=== PATIENT | male | born 1975 | race Caucasian/White ===

== ENCOUNTER → 2016-10-15 | Day surgery (SDC) | payer BC ==
[~2016-10-15] MED LIST: NO MEDICATIONS; PANTOPRAZOLE SO40 MG
--- NOTE | ~2016-10-15 | CO ---
Unit #: [id number] #: [id number] Patient: WILLOW BANGURA [id number] [address] [place], [place] [address] [id number] O MR#: [id number] NAME: WILLOW BANGURA. ROOM: Age: 41 Sex: M Admission Date: 10/15/2016 : 1975 Attending Physician: Pilo Flynn M.D. Requesting Physician: Pilo Flynn M.D. Consultation Date: 10/15/2016 CONSULTATION REPORT REASON FOR CONSULTATION Patient has meat impaction in the esophagus and presented to the emergency room. Patient was seen in the emergency room at the request of the emergency room doctor. Apparently, patient has had occasional episodes of dysphagia to solids but denies any persistent dysphagia. Earlier today he was eating a meat burrito, and this got stuck in his esophagus. Patient is extremely uncomfortable and is complaining of lower sternal pain. He does have a history of vomiting and regurgitation after he tried to eat more. PAST MEDICAL HISTORY No significant past medical history. PAST SURGICAL HISTORY The only previous surgeries include back surgeries. HOME MEDICATIONS He is not on any home medications and denies taking [id number] NSAIDS. ALLERGIES No known drug allergies. SOCIAL HISTORY He does not smoke or drink alcohol. He drinks as a adult probation officer. He is and lives at home with his . There is no family history of colon or pancreatic cancer or liver disease. REVIEW OF SYSTEMS A detailed review of organ systems does not reveal any recent weight loss. No history of fever, chills, or rigors, no history of headaches, seizures, or syncope, no history of cough, expectoration, or hemoptysis, no history of dysuria, hematuria, or pyuria, and no history of focal seizures or extremity weakness. The rest of the review of organ systems is unremarkable. PHYSICAL EXAMINATION GENERAL: He is awake, alert, oriented, and appears quite athletic and muscular. VITAL SIGNS: Stable with temperature of 97.9, pulse 80 per minute and regular, respiratory rate is 16, blood pressure is 116/71, and oxygen saturation is 99% on room air. HEENT: No pallor, icterus, lymphadenopathy, or peripheral edema. CARDIOVASCULAR: Normal heart sounds. No murmurs. Unit #: [id number] #: [id number] Patient: WILLOW BANGURA CHEST: Auscultation over the lungs reveals normal breath sounds and good air entry. ABDOMEN: Soft and nontender. Liver and spleen are not palpable, and bowel sounds are normal. DIAGNOSTIC STUDIES LABORATORY: No labs have been done. CLINICAL IMPRESSION Patient with bolus meat impaction in the distal esophagus. An upper endoscopy and a disimpaction of the foreign body is indicated and this will be scheduled shortly. The pros and cons of the procedure and the potential risks and complications including a higher than normal possibility of esophageal perforation were discussed with the patient and his . They both seemed reassured. Thank you for asking me to see this pleasant gentleman. I appreciate the consult. Dictated by... Cristal Rai/kenyon TD: 10/16/2016 18:48 JOB #: [id number] CONSULTATION REPORT Page 1 of 1 X Pilo Flynn MD X CONSULTATION REPORT
--- NOTE | ~2016-10-15 | OR ---
Unit #: [id number] #: [id number] Patient: WILLOW BANGURA [id number] [address] [address] [id number] O MR#: [id number] NAME: WILLOW BANGURA ROOM: Date of Procedure: 10/15/2016 Admission Date: 10/15/2016 Surgeon: Pilo Flynn M.D. : 1975 Attending Physician: Pilo Flynn M.D. Referring Physician: Pilo Flynn M.D. OPERATIVE REPORT PREOPERATIVE DIAGNOSIS The patient had presented with meat impaction of the esophagus. PROCEDURES PERFORMED 1. Upper gastrointestinal endoscopy and biopsy. 2. Upper gastrointestinal endoscopy and meat foreign body removal. POSTOPERATIVE DIAGNOSES 1. 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 The meat bolus was impacted above that area. The meat bolus was removed and disimpacted. The patient had underlying stricture with lot of edema and injury to these area from intervention. 2. Prepyloric antral gastritis. 3. Rest of the examination up to third part of duodenum was normal. A biopsy was obtained from the antrum for CLOtest. RECOMMENDATIONS The patient is being started on pantoprazole 40 mg p.o. b.i.d. He will be followed up in the office in 8 to 10 weeks' time and a repeat endoscopy and elective dilation will be attempted at that time. SEDATION USED MAC. DESCRIPTION OF PROCEDURE Following detailed explanation of the potential risks and complications of an upper endoscopy, namely perforation, bleeding, and complication related to sedation, the patient was brought to GI lab and laid in the left lateral decubitus position. Lubricated tip of the Olympus video upper endoscope was passed through the bite block into the proximal esophagus under direct vision. The entire esophageal mucosa was examined. The patient was noted to have a meat bolus impacted in the distal esophagus. This was disimpacted using combination of gentle tug of the scope and triceps and tripods. After the meat bolus was disimpacted, the area was carefully examined. Underlying stricture with lot of erythema and erosions were noted. The scope was then advanced into the gastric cavity and the latter was insufflated. Mucosa of the fundus, body, and antrum was examined. Prepyloric antral erythema erosions were noted indicating antral gastritis. Pylorus was intubated with visualization of the normal duodenal bulb and second and third part of the duodenum. Upon withdrawal and retroflexion, incisura, cardia, and greater curve was examined and biopsy was obtained from the antrum for CLOtest. The scope was then Unit #: [id number] #: [id number] Patient: WILLOW BANGURA withdrawn in the distal esophagus. Entire esophageal mucosa was examined all the way up to pharynx. No additional findings were noted. The patient tolerated the procedure without any postprocedure complications. Dictated by... Cristal Rai/janet TD: 10/16/2016 16:34 JOB #: [id number] OPERATIVE REPORT Page 1 of 1 X Pilo Flynn MD X PROCEDURE OPERATIVE NOTE
== END | disposition home or self-care (01) ==
LOC: SED 12:31 → CSUR 15:50 → COPS 15:50
DX: T18.128A Food in esophagus causing other injury, initial encounter (principal); K22.2 Esophageal obstruction; K29.70 Gastritis, unspecified, without bleeding; Z98.890 Other specified postprocedural states; X58.XXXA Exposure to other specified factors, initial encounter
CPT/HCPCS: 87077; 96374; 96375; 99285; J1610; J2405